=== PATIENT | female | born 2000 | race Hispanic/Latino ===

== ENCOUNTER → 2022-08-25 | Outpatient (CLI) | payer OTHER | LOC: M PLAIMG 11:36 | PROVIDERS: ATTEND Physician Assistant | DX: R06.00 Dyspnea, unspecified (principal) ==

== ENCOUNTER → 2022-12-09 | Outpatient (CLI) | payer OTHER ==
[~2022-12-09] MED LIST: METHACHOLINE KIT INH ONE
== END ==
LOC: M CARPUL 09:25
PROVIDERS: ATTEND Physician Assistant
DX: R06.00 Dyspnea, unspecified (principal)
CPT/HCPCS: 94070; J7674